=== PATIENT | female | born 1985 | race Caucasian/White ===

== ENCOUNTER 2017-06-12 10:37 | Emergency (ER) | payer BC, OTHER ==
[2017-06-12 12:34] VITALS: BP 139/99
--- NOTE | 2017-06-12 13:21 | RAD ---
INDICATION: Fell while intoxicated COMPARISON: None TECHNIQUE: Routine five-view imaging was performed FINDINGS: Bones: There are no acute bony findings. There are no significant osteoarthritic findings. Craniocervical junction: The odontoid and atlantodental interval are normal. Alignment: Normal Disc spaces: The disc spaces are well-maintained Soft tissues: The prevertebral soft tissues are normal. IMPRESSION: NEGATIVE EXAMINATION.
--- NOTE | 2017-06-12 13:42 | UC ---
Laceration HPI - HPI Summary HPI Summary: Pt reports that she went on a wine tour yesterday, was intoxicated and went to bed. Woke up in the night to void, tripped and hit back of head on dresser in hotel room. Pt denies LOC. Reports that she woke with blood on pillow and tenderness along upper part of neck. - History Of Current Complaint Chief Complaint: UCLaceration Stated Complaint: HEAD LACERATION Time Seen by Provider: 06/12/17 12:39 Hx Obtained From: Patient Laceration Location: Head Mechanism Of Injury: Blunt Trauma Onset/Duration: Sudden Onset Severity: Mild Pain Intensity: 8 Pain Scale Used: 0-10 Numeric Aggravating Factors: Movement Related History: Headache - Allergies/Home Medications Allergies/Adverse Reactions: Allergies Allergy/AdvReac Type Severity Reaction Status Date / Time Morphine Allergy Itching Verified 06/12/17 12:35 Home Medications: Home Medications Norgestimate-Ethinyl Estradiol [Trinessa 0.18/0.215/0.25 mg-35 Mcg] 1 tab PO DAILY 06/12/17 [History Confirmed 06/12/17] PMH/Surg Hx/FS Hx/Imm Hx Previously Healthy: Yes - Surgical History Surgical History: Yes Surgery Procedure, Year, and Place: T&A. Left knee repair of meniscus - Family History Known Family History: Positive: Cardiac Disease - Social History Occupation: Employed Full-time Lives: With Family Alcohol Use: Weekly Substance Use Type: None Smoking Status (MU): Never Smoked Tobacco Have You Smoked in the Last Year: No Review of Systems Constitutional: Negative, Other - hung over Skin: Other - laceration Eyes: Negative ENT: Negative Respiratory: Negative Cardiovascular: Negative Gastrointestinal: Negative Genitourinary: Negative Motor: Negative Neurovascular: Negative Musculoskeletal: Myalgia - upper neck, back of head Neurological: Headache Psychological: Negative Is Patient Immunocompromised?: No All Other Systems Reviewed And Are Negative: Yes Physical Exam Triage Information Reviewed: Yes Appearance: Well-Appearing Vital Signs: Initial Vital Signs Pulse 84 06/12/17 12:31 Resp 12 06/12/17 12:31 BP 139/99 06/12/17 12:31 Pulse Ox 98 06/12/17 12:31 Vital Signs Reviewed: Yes Eye Exam: Normal ENT Exam: Normal Dental Exam: Normal Neck: Positive: Tenderness @ - along upper neck to top shoulders Respiratory Exam: Normal Cardiovascular Exam: Normal Musculoskeletal Exam: Normal Neurological Exam: Normal Psychological Exam: Normal Skin Exam: Other - laceration back of head mid occipital Laceration Repair - Laceration Repair 1 Description: Linear Laceration Size After Repair: Length (cm) - 2, Width (mm) - 3 Modified For Repair: No Irrigation With Pressure Irrigation Device: Yes Closure Material: [place] - three staple Closure Method: Single Layer Suture Of: Skin Laceration Course/Dx - Differential Dx - Laceration/Wound Differental Diagnoses: Laceration Provider Diagnoses: laceration- occipital, repaired with 3 rusty. neck pain- neck for fracture xray report Discharge - Discharge Plan Condition: Stable Disposition: HOME Patient Education Materials: Laceration (ED), Neck Pain (ED) Referrals: [facility] [Outside] Additional Instructions: Please return to have rusty removed in 10-14 days.
== END 2017-06-12 13:36 | disposition home or self-care (01) ==
LOC: UCCORT 10:37
DX: S01.01XA Laceration without foreign body of scalp, initial encounter (principal); W01.190A Fall on same level from slipping, tripping and stumbling with subsequent striking against furniture, initial encounter; Y93.89 Activity, other specified; Y92.59 Other trade areas as the place of occurrence of the external cause; M54.2 Cervicalgia; Z88.5 Allergy status to narcotic agent
CPT/HCPCS: 12001; 72050; 99212; G0463

== ENCOUNTER 2017-06-24 09:24 | Emergency (ER) | payer OTHER ==
[2017-06-24 09:53] VITALS: BP 122/74
--- NOTE | 2017-06-24 09:55 | UC ---
HPI Wound/Suture Re-check - HPI Summary HPI Summary: 32 YEAR OLD FEMALE PRESENTS FOR REMOVAL OF ANIRUDH FROM THE BACK OF HER HEAD. - History Of Current Complaint Chief Complaint: UCSkin Stated Complaint: STAPLE REMOVAL Time Seen by Provider: 06/24/17 09:55 Hx Obtained From: Patient Hx Last Menstrual Period: 06/19/17 Onset/Duration: Lasting Days Severity: Mild - Allergies/Home Medications Allergies/Adverse Reactions: Allergies Allergy/AdvReac Type Severity Reaction Status Date / Time Morphine Allergy Itching Verified 06/24/17 09:53 PMH/Surg Hx/FS Hx/Imm Hx - Surgical History Surgical History: Yes Surgery Procedure, Year, and Place: T&A. Left knee repair of meniscus - Family History Known Family History: Positive: Cardiac Disease - Social History Alcohol Use: Weekly Substance Use Type: None Smoking Status (MU): Never Smoked Tobacco Have You Smoked in the Last Year: No Review of Systems Constitutional: Negative Skin: Other - STAPLE REMOVAL FROM THE HEAD Eyes: Negative ENT: Negative Respiratory: Negative Cardiovascular: Negative Gastrointestinal: Negative Genitourinary: Negative Motor: Negative Neurovascular: Negative Musculoskeletal: Negative Neurological: Negative Psychological: Negative All Other Systems Reviewed And Are Negative: Yes Physical Exam Triage Information Reviewed: Yes Vital Signs: Initial Vital Signs Temp 36.8 C 06/24/17 09:51 Pulse 84 06/24/17 09:51 Resp 14 06/24/17 09:51 BP 122/74 06/24/17 09:51 Pulse Ox 99 06/24/17 09:51 Vital Signs Reviewed: Yes Eye Exam: Normal ENT Exam: Normal Dental Exam: Normal Neck exam: Normal Neck: Positive: 1 Respiratory Exam: Normal Cardiovascular Exam: Normal Abdominal Exam: Normal Musculoskeletal Exam: Normal Neurological Exam: Normal Psychological Exam: Normal Skin: Positive: Other - STAPLE REMOVAL FROM HEAD (3) Course/Dx - Differential Dx - Laceration/Wound Provider Diagnoses: STAPLE REMOVAL FROM BACK OF HEAD Discharge - Discharge Plan Condition: Stable Disposition: HOME Patient Education Materials: Acute Wound Care (ED) Referrals: Jonnathan Zamorano MD [Primary Care Provider] -
== END 2017-06-24 10:08 | disposition home or self-care (01) ==
LOC: UCCORT 09:24
DX: Z48.02 Encounter for removal of sutures (principal)